=== PATIENT | male | born 1950 | race Caucasian/White ===

== ENCOUNTER 2023-07-03 22:00 | Inpatient (IN) | payer MEDICARE, OTHER ==
[~2023-07-03] VITALS: Ht 182.9 cm; Wt 94.1 kg
[2023-07-03 22:39] LABS: BASOPHILS % 0.4 % (0.0-1.0); EOSINOPHILS # (AUTO) 0.2 (0.0-0.4); EOSINOPHILS % 3.3 % (0.0-6.0); HEMATOCRIT 45.2 % (38.2-49.6); HEMOGLOBIN 15.6 g/dL (14.0-18.0); LYMPHOCYTES % 27.4 % (18.0-39.1); MEAN CORPUSCULAR HEMOGLOBIN 33.4 pg (28-32); MEAN CORPUSCULAR HGB CONC 34.5 g/dL (31-35); MEAN CORPUSCULAR VOLUME 96.8 fL (81-99); MONOCYTES # (AUTO) 0.5 (0.2-0.8); MONOCYTES % 7.2 % (4.4-11.3); NEUTROPHILS # (AUTO) 4.5 (2.1-6.9); NEUTROPHILS % 61.3 % (38.7-80.0); PLATELET COUNT 217 x10e3/uL (140-360); RED BLOOD COUNT 4.67 x10e6/uL (4.3-5.7); RED CELL DISTRIBUTION WIDTH 11.6 % (11.7-14.4); WHITE BLOOD COUNT 7.26 x10e3/uL (4.8-10.8)
[2023-07-03 23:05] LABS: ALBUMIN 3.9 g/dL (3.5-5.0); ANION GAP 15.9 mmol/L (8-16); BILIRUBIN,TOTAL 0.5 mg/dL (0.2-1.2); CALCIUM 9.2 mg/dL (8.4-10.2); CREATININE, SERUM 1.21 mg/dL (0.72-1.25); POTASSIUM 3.9 mmol/L (3.5-5.1); TOTAL PROTEIN 7.7 g/dL (6.5-8.1)
[2023-07-03 23:11] LABS: TROPONIN I 0.076 ng/mL (0-0.300)
[2023-07-03] MEDS ORDERED: METOPROLOL TARTRATE INJ 1 MG/ML VIAL IV ONE (23:45)
[2023-07-04] VITALS (23 sets, daily range): BP systolic 106–167; BP diastolic 66–94; PULSE 62–93; RESP 11–20; TEMP 97–99; O2SAT 93–100
[2023-07-04] MEDS ORDERED: FUROSEMIDE INJ 10 MG/ML 4 ML VIAL IV ONE
[2023-07-04 06:40] LABS: BASOPHILS % 0.4 % (0.0-1.0); EOSINOPHILS # (AUTO) 0.1 (0.0-0.4); EOSINOPHILS % 1.2 % (0.0-6.0); HEMATOCRIT 44.2 % (38.2-49.6); HEMOGLOBIN 15.6 g/dL (14.0-18.0); LYMPHOCYTES # (AUTO) 1.7 (1.0-3.2); LYMPHOCYTES % 14.6 % (18.0-39.1); MEAN CORPUSCULAR HEMOGLOBIN 33.3 pg (28-32); MEAN CORPUSCULAR HGB CONC 35.3 g/dL (31-35); MEAN CORPUSCULAR VOLUME 94.2 fL (81-99); MONOCYTES # (AUTO) 0.8 (0.2-0.8); MONOCYTES % 7.5 % (4.4-11.3); NEUTROPHILS # (AUTO) 8.6 (2.1-6.9); NEUTROPHILS % 75.9 % (38.7-80.0); PLATELET COUNT 215 x10e3/uL (140-360); RED BLOOD COUNT 4.69 x10e6/uL (4.3-5.7); RED CELL DISTRIBUTION WIDTH 11.6 % (11.7-14.4); WHITE BLOOD COUNT 11.27 x10e3/uL (4.8-10.8)
[2023-07-04 07:07] LABS: ALBUMIN 3.7 g/dL (3.5-5.0); ANION GAP 12.9 mmol/L (8-16); BILIRUBIN,TOTAL 0.6 mg/dL (0.2-1.2); CALCIUM 9.1 mg/dL (8.4-10.2); CREATININE, SERUM 1.05 mg/dL (0.72-1.25); POTASSIUM 3.9 mmol/L (3.5-5.1); TOTAL PROTEIN 7.4 g/dL (6.5-8.1)
[2023-07-04 07:33] LABS: TROPONIN I 24.104 ng/mL (0-0.300)
[2023-07-04] MEDS ORDERED: HEPARIN 25,000 UNIT/D5W 250ML 1,000 UNIT in DEXTROSE 5% 250ML 250 ML IV SCH ×2 (08:15→09:05)
[2023-07-04] MEDS ORDERED: DEXTROSE 50% SYRINGE 50 ML IV PRN (08:15)
[2023-07-04] MEDS ORDERED: ACETAMINOPHEN 325 MG TAB PO PRN ×2 (08:15→10:00)
[2023-07-04] MEDS ORDERED: ONDANSETRON HCL INJ 2MG/ML 2ML 2 MG/ML VIAL IV PRN ×2 (08:15→10:00)
[2023-07-04] MEDS ORDERED: ASPIRIN 325 MG TAB EC PO ONE (08:50)
[2023-07-04] MEDS ORDERED: HEPARIN SOD (PORCINE) 5,000 UNIT/ML VIAL IV ONE (09:00)
[2023-07-04 09:18] LABS: CHOL/HDL RATIO 6.9 (3.9-4.7)
[2023-07-04] MEDS ORDERED: LIDOCAINE HCL 2% LOCAL 20 ML VIAL ONE (09:31)
[2023-07-04] MEDS ORDERED: HEPARIN SOD/SOD CHLORIDE 2,000 ML ONE (09:32)
[2023-07-04] MEDS ORDERED: IOPAMIDOL 370 MG/ML 100 ML INFUS..BTL INJ ONE (09:32)
[2023-07-04 09:42] LABS: THYROID STIMULATING HORMONE 1.172 uIU/mL (0.350-4.940)
[2023-07-04] MEDS ORDERED: MIDAZOLAM HCL 2 MG/2 ML VIAL ONE (10:02)
[2023-07-04] MEDS ORDERED: VERAPAMIL HCL 2.5 MG/ML 2 ML VIAL ONE (10:02)
[2023-07-04] MEDS ORDERED: FENTANYL CITRATE/PF 100MCG/2 ML INJ ONE (10:03)
[2023-07-04] MEDS ORDERED: CLOPIDOGREL BISULFATE 75 MG TAB ONE (10:51)
[2023-07-04] MEDS ORDERED: ASPIRIN 325 MG TAB ONE (10:52)
[2023-07-04] MEDS: INSULIN REGULAR, HUMAN 100 UNIT/1 ML SQ SCH ×3 (14:51→21:21)
[2023-07-04] MEDS: POLYETHYLENE GLYCOL 3350 17 GM PACK PO SCH (14:56)
[2023-07-04] MEDS: SODIUM CHLORIDE 0.9% 1000ML 1,000 ML IV SCH ×2 (14:56→21:14)
[2023-07-04] MEDS: FUROSEMIDE INJ 10 MG/ML 4 ML VIAL IV SCH ×2 (14:58→18:19)
[2023-07-04] MEDS ORDERED: MELATONIN 3 MG TAB PO SCH (21:00)
[2023-07-05] VITALS (9 sets, daily range): BP systolic 106–131; BP diastolic 65–76; PULSE 77–83; RESP 17–20; TEMP 97.8–98.6; O2SAT 93–99
[2023-07-05] MEDS: SODIUM CHLORIDE 0.9% 1000ML 1,000 ML IV SCH (06:19)
[2023-07-05 06:20] LABS: BASOPHILS % 0.2 % (0.0-1.0); EOSINOPHILS # (AUTO) 0.2 (0.0-0.4); EOSINOPHILS % 1.8 % (0.0-6.0); HEMATOCRIT 43.8 % (38.2-49.6); LYMPHOCYTES # (AUTO) 2.3 (1.0-3.2); MEAN CORPUSCULAR HGB CONC 34.2 g/dL (31-35); MEAN CORPUSCULAR VOLUME 96.5 fL (81-99); MONOCYTES # (AUTO) 0.8 (0.2-0.8); MONOCYTES % 7.9 % (4.4-11.3); NEUTROPHILS # (AUTO) 6.6 (2.1-6.9); NEUTROPHILS % 66.8 % (38.7-80.0); PLATELET COUNT 203 x10e3/uL (140-360); RED BLOOD COUNT 4.54 x10e6/uL (4.3-5.7); RED CELL DISTRIBUTION WIDTH 11.6 % (11.7-14.4); WHITE BLOOD COUNT 9.88 x10e3/uL (4.8-10.8)
[2023-07-05 06:33] LABS: ALBUMIN 3.3 g/dL (3.5-5.0); ANION GAP 12.4 mmol/L (8-16); BILIRUBIN,TOTAL 0.9 mg/dL (0.2-1.2); CALCIUM 8.7 mg/dL (8.4-10.2); CREATININE, SERUM 1.07 mg/dL (0.72-1.25); TOTAL PROTEIN 6.7 g/dL (6.5-8.1)
[2023-07-05 06:34] LABS: POTASSIUM 3.4 mmol/L (3.5-5.1)
[2023-07-05] MEDS: POLYETHYLENE GLYCOL 3350 17 GM PACK PO SCH (08:35)
[2023-07-05] MEDS: INSULIN REGULAR, HUMAN 100 UNIT/1 ML SQ SCH ×2 (08:43→12:12)
[2023-07-05] MEDS ORDERED: COZAAR25 MG PO (08:48)
[2023-07-05] MEDS ORDERED: PLAVIX75 MG PO (08:48)
[2023-07-05] MEDS ORDERED: JARDIANCE10 MG PO (08:48)
[2023-07-05] MEDS ORDERED: ASPIRIN CHEW81 MG PO (08:48)
[2023-07-05] MEDS ORDERED: TOPROL XL25 MG PO (08:48)
[2023-07-05] MEDS ORDERED: ACCU-CHEK GUID1 EAC2 (08:48)
[2023-07-05] MEDS ORDERED: METFORMIN HCL500 M2 PO (08:48)
[2023-07-05] MEDS ORDERED: LIPITOR20 MG PO (08:48)
[2023-07-05] MEDS ORDERED: CLOPIDOGREL BISULFATE 75 MG TAB PO SCH (09:00)
[2023-07-05] MEDS ORDERED: METOPROLOL SUCCINATE 25 MG TAB XL PO SCH (09:00)
[2023-07-05] MEDS ORDERED: LOSARTAN POTASSIUM 25 MG TAB PO SCH (09:00)
[2023-07-05] MEDS ORDERED: ASPIRIN 81 MG CHEW TAB PO SCH (09:00)
[2023-07-05] MEDS ORDERED: ONDANSETRON HCL 4 MG ORAL DISINTEGRATING TAB PO PRN ×2 (09:00→09:15)
[2023-07-05] MEDS ORDERED: ATORVASTATIN 40 MG TAB PO SCH (09:00)
[2023-07-05] MEDS ORDERED: CRESTOR10 MG PO (09:18)
[2023-07-05] MEDS ORDERED: CLOPIDOGREL75 MG PO (16:26)
== END 2023-07-05 16:55 | disposition home or self-care (01) | DRG 281 ==
LOC: ER 22:05 → ERHOLD 23:55 → MED/SURG3 07-04 00:59 → OBSVTOIN 07-04 09:06
PROVIDERS: ADMIT Internal Medicine; ATTEND Internal Medicine
PROC: 4A023N7 Measurement of Cardiac Sampling and Pressure, Left Heart, Percutaneous Approach (ICD-10-PCS; principal; 2023-07-04)
PROC: B2111ZZ Fluoroscopy of Multiple Coronary Arteries using Low Osmolar Contrast (ICD-10-PCS; 2023-07-04)
DX: I21.4 Non-ST elevation (NSTEMI) myocardial infarction (principal); J81.1 Chronic pulmonary edema; I25.10 Atherosclerotic heart disease of native coronary artery without angina pectoris; Z95.5 Presence of coronary angioplasty implant and graft; Z68.28 Body mass index [BMI] 28.0-28.9, adult; E11.65 Type 2 diabetes mellitus with hyperglycemia; E78.5 Hyperlipidemia, unspecified; I10 Essential (primary) hypertension; Z91.141 Patient's other noncompliance with medication regimen due to financial hardship; Z20.822 Contact with and (suspected) exposure to COVID-19; Z79.84 Long term (current) use of oral hypoglycemic drugs
CPT/HCPCS: 36415; 71045; 76937; 80053; 80061; 82550; 82948; 83036; 83690; 83880; 84443; 84484; 85025; 85730; 92920; 92928; 93005; 93306; 93458; 99152; 99153; 99284; C1725; C1769; C1874; C1887; C1894; G0378; J1644; J1940; J2001; J2250; J7030; Q9967; U0002

== ENCOUNTER → 2024-02-11 | Outpatient (REF) | payer MEDICARE ==
[~2024-02-11] MED LIST: ACCU-CHEK GUID1 EAC2; ASPIRIN CHEW81 MG PO; CLOPIDOGREL75 MG PO; COZAAR25 MG PO; CRESTOR10 MG PO; IOPAMIDOL 370 MG/ML 100 ML INFUS..BTL INJ ONE; JARDIANCE10 MG PO; LIPITOR20 MG PO; METFORMIN HCL500 M2 PO; PLAVIX75 MG PO; SODIUM CHLORIDE 0.9% 100 ML ONE; TOPROL XL25 MG PO
[2024-02-11 09:10] LABS: CREATININE, SERUM 0.85 mg/dL (0.72-1.25)
== END ==
LOC: CT 07:26
PROVIDERS: ATTEND Internal Medicine Cardiovascular Disease
DX: I65.21 Occlusion and stenosis of right carotid artery (principal)
CPT/HCPCS: 36415; 70498; 82565; 84520; J7050; Q9967